=== PATIENT | female | born 1955 | race Two or more races ===

== ENCOUNTER → 2017-03-01 | Day surgery (SDC) | payer OTHER ==
[2017-03-01] VITALS (7 sets, daily range): BP systolic 126–148; BP diastolic 58–65; PULSE 76–78; RESP 14–21
[~2017-03-01] MED LIST: CIPROFLOXACIN 400MG/D5W 200 ML ONE; DIPHENHYDRAMINE 50 MG INJ IV PRN; EPHEDrine SULFATE 50 MG/5 ML SYG IV PRN; EPHEDrine SULFATE 50 MG/5 ML SYG ONE; FENTAnyl 50 MCG/ML VIAL IV PRN; FENTAnyl 50 MCG/ML VIAL ONE; INSULIN ASPART [NOVOLOG] 3 ML PEN SC ONE; LABETALOL HCL 20MG INJ IV PRN; LORAZEPAM 2 MG INJ IV PRN; MEPERIDINE 25 MG INJ IV PRN; METOCLOPRAMIDE 10 MG INJ ONE; MIDAZOLAM 1 MG/ML 2 ML INJ ONE; ONDANSETRON 4 MG INJ IV PRN; ONDANSETRON 4 MG INJ ONE; PROCHLORPERAZINE 10 MG INJ IV PRN; hydrALAzine 20 MG INJ IV PRN
--- NOTE | 2017-03-01 11:39 | OPPN ---
Date/Time of Note Date/Time of Note DATE: 03/01/17 TIME: 11:37 Proc Note GI Procedure Date 03/01/17 Pre-procedure Diagnosis Dysphagia Post-procedure Diagnosis Dysphagia Procedure Performed: Other (PEG) Surgeon see signature line Flame Brazing Machine Operator none Anesthesia Type: MAC Tourniquet Time none EBL none Transfusion required none Grafts/Implants none Tubes/Drains none Complication(s) none Disposition: other (2 [place]) Indications: other (Dysphagia) Operative\Procedure Findings PEG ANNIE CASTAÑEDA MD Mar 01, 2017 11:38
--- NOTE | 2017-03-01 13:00 | GILP ---
DATE OF PROCEDURE: 03/01/2017 PROCEDURE PERFORMED: Percutaneous endoscopic gastrostomy tube. INDICATIONS FOR PROCEDURE: The patient is 61-year-old female, with respiratory failure and dysphagia, is undergoing this procedure for placement of a G-tube for long-term enteral nutrition. DESCRIPTION OF PROCEDURE: The risks of the procedure, related and unrelated complications, anesthetic risks, alternatives were discussed. Informed consent was obtained. The patient was brought to the GI lab, sedated by the anesthesiologist. She was given antibiotic. After optimal sedation, scope was passed with much ease into the esophagus, advanced further down into stomach and duodenum. There was no evidence of obstruction. By transillumination and digital palpation technique, appropriate site was chosen on the anterior abdominal wall. The site was sterilized with chlorhexidine solution, 2 percent xylocaine instilled by safe method. Small incision was made. Through that incision trocar, stylet placed into stomach, stylet was removed through the hollow tip of the catheter. The blue collar string was passed into the stomach. It was snared. We trans-endoscopically passed the snare and the entire procedure was completed by modified Ponsky technique. The patient was rescoped, the position of the internal bumper confirmed, external bumper secured. Tolerated the procedure very well. IMPRESSION: Successful placement of G-tube done without any complication. PLAN: Resume feeding after 6 hours and all the medication after 3 hours. Dictated By: Bernabe Daniel MD /helder/jayme /Document#: [id number] CC: Tenzin Fischer DO;*[facility]*
== END | disposition home or self-care (01) ==
LOC: GIL 09:37
PROVIDERS: ATTEND Internal Medicine Gastroenterology
DX: R13.10 Dysphagia, unspecified (principal); J96.90 Respiratory failure, unspecified, unspecified whether with hypoxia or hypercapnia; I13.0 Hypertensive heart and chronic kidney disease with heart failure and stage 1 through stage 4 chronic kidney disease, or unspecified chronic kidney disease; I50.9 Heart failure, unspecified; E11.22 Type 2 diabetes mellitus with diabetic chronic kidney disease; N18.2 Chronic kidney disease, stage 2 (mild); Z79.4 Long term (current) use of insulin; E03.9 Hypothyroidism, unspecified; E66.01 Morbid (severe) obesity due to excess calories; G47.30 Sleep apnea, unspecified; Z88.6 Allergy status to analgesic agent; Z88.0 Allergy status to penicillin
CPT/HCPCS: 43246; 94002; J0744; J1815; J2250; J2405; J2765; J3010

== ENCOUNTER → 2017-03-13 | Day surgery (SDC) | payer OTHER ==
[2017-03-13] VITALS (12 sets, daily range): BP systolic 150–176; BP diastolic 74–86; PULSE 70–74; RESP 15–18
[~2017-03-13] VITALS: Ht 165.1 cm; Wt 120.2 kg
[~2017-03-13] MED LIST changes: +CEFAZOLIN 1 GM INJ ONE; -CIPROFLOXACIN 400MG/D5W 200 ML ONE; -DIPHENHYDRAMINE 50 MG INJ IV PRN; -EPHEDrine SULFATE 50 MG/5 ML SYG IV PRN; -EPHEDrine SULFATE 50 MG/5 ML SYG ONE; -FENTAnyl 50 MCG/ML VIAL IV PRN; -FENTAnyl 50 MCG/ML VIAL ONE; -INSULIN ASPART [NOVOLOG] 3 ML PEN SC ONE; -LABETALOL HCL 20MG INJ IV PRN; -LORAZEPAM 2 MG INJ IV PRN; -MEPERIDINE 25 MG INJ IV PRN; -METOCLOPRAMIDE 10 MG INJ ONE; -MIDAZOLAM 1 MG/ML 2 ML INJ ONE; -ONDANSETRON 4 MG INJ IV PRN; -ONDANSETRON 4 MG INJ ONE; -PROCHLORPERAZINE 10 MG INJ IV PRN; -hydrALAzine 20 MG INJ IV PRN
--- NOTE | 2017-03-13 13:23 | OPPN ---
Date/Time of Note Date/Time of Note DATE: 03/13/17 TIME: 13:22 Proc Note GI Procedure Date 03/13/17 Indication: treatment Pre-procedure Diagnosis dysphagia Post-procedure Diagnosis same Procedure Performed: Endoscopy, Other Surgeon see signature line Narcotics Investigator none Anesthesia Type: MAC Tourniquet Time none EBL none Transfusion required none Biopsy 1: none Grafts/Implants none Tubes/Drains none Complication(s) none Disposition: PACU Procedure Description PEG ANNIE CASTAÑEDA MD Mar 13, 2017 13:23
--- NOTE | 2017-03-13 13:24 | HPN ---
Date/Time of Note Date/Time of Note DATE: 03/13/17 TIME: 13:24 Interval H&P Admission Note Pt. seen H&P reviewed: No system changes ANNIE CASTAÑEDA MD Mar 13, 2017 13:24
--- NOTE | 2017-03-14 05:57 | GILP ---
DATE OF PROCEDURE: PROCEDURE PERFORMED: PEG. INDICATION: A 61-year-old female, status post a PEG, had a G-tube in subcutaneous tissue. She is u ndergoing an endoscopic procedure for the removal of the G-tube under endoscopic guidance and placem ent of new G-tube. INFORMED CONSENT: The risks of the procedure, related and unrelated complications, anesthetic risks , and alternatives discussed. Informed consent was obtained. DESCRIPTION OF PROCEDURE: The patient was brought to the OR room #1, sedated by Dr. Lr, and was given antibiotic. After optimum sedation, the scope was passed with much ease into the esophagus a nd advanced further down into the stomach, and the bumper was buried in the subcutaneous tissue. It cannot be moved in or out. So, at this point, decided to pass a guidewire through the stalk and ma naged to pass inside the stomach. The blue string was then pulled out with the scope through the bi opsy channel, and the whole procedure was completed by modified Ponsky technique. The old G-tube an d the bumper were removed by simple traction. The patient was rescoped. The position of the administration internship al bumper confirmed. The patient tolerated the procedure very well. IMPRESSION: Successful placement of gastrostomy tube (G-tube) done. PLAN: To keep the patient n.p.o., start the patient on PPI and antibiotic, Cipro, for Gram-negative coverage, and will resume feeding in a.m. NOTE: The staff should not be touching the bumper. Last time, they had put a 4x4 under the bumper, and that should be avoided. Dictated By: ANNIE HERNDON/MARGUERITE Conf#: [id number] DID#: [id number] CC: ROLANDA VALERA DO;*EndCC*
== END | disposition home or self-care (01) ==
LOC: SDS 11:53
PROVIDERS: ATTEND Internal Medicine Gastroenterology
DX: Z43.1 Encounter for attention to gastrostomy (principal); I10 Essential (primary) hypertension; E11.9 Type 2 diabetes mellitus without complications; J96.90 Respiratory failure, unspecified, unspecified whether with hypoxia or hypercapnia; J44.9 Chronic obstructive pulmonary disease, unspecified; E66.01 Morbid (severe) obesity due to excess calories
CPT/HCPCS: 43246; 94002; J0690

== ENCOUNTER 2017-04-13 06:11 | Day surgery (SDC) | payer OTHER ==
[2017-04-13] VITALS (8 sets, daily range): BP systolic 94–122; BP diastolic 35–55; PULSE 58–60; RESP 11–24
[~2017-04-13] VITALS: Ht 165.1 cm; Wt 125.0 kg
[2017-04-13] MEDS ORDERED: CIPRO 400 MG/200 ML D5W IVPB ONE (07:00)
[2017-04-13] MEDS ORDERED: LIDOCAINE 1% (MPF) 30 ML INJ ONE (07:49)
[2017-04-13] MEDS ORDERED: HEPARIN 1000 UNITS/ML 10 ML INJ ONE (07:49)
[2017-04-13] MEDS ORDERED: IOHEXOL 300MG/ML 30 ML BTL ONE (07:49)
--- NOTE | 2017-04-13 08:13 | HPN ---
Date/Time of Note Date/Time of Note DATE: 04/13/17 TIME: 08:13 Interval H&P Admission Note Pt. seen H&P reviewed: Systems changes noted below changes per notes in [place]endes per all consultants BHARATI VALERA MD Apr 13, 2017 08:13
[2017-04-13] MEDS ORDERED: MIDAZOLAM 1 MG/ML 2 ML INJ ONE (08:42)
[2017-04-13] MEDS ORDERED: PHENYLephrine (100 MCG/ML) 5ML SYG ONE (08:52)
[2017-04-13] MEDS ORDERED: FENTAnyl 50 MCG/ML VIAL ONE (08:52)
[2017-04-13] MEDS ORDERED: ROCURONIUM 50 MG INJ ONE (08:54)
[2017-04-13] MEDS ORDERED: METOCLOPRAMIDE 10 MG INJ ONE (09:29)
[2017-04-13] MEDS ORDERED: DEXAMETHASONE 4 MG/ML 1 ML INJ ONE (09:29)
[2017-04-13] MEDS ORDERED: ONDANSETRON 4 MG INJ ONE (09:29)
[2017-04-13] MEDS ORDERED: LABETALOL HCL 20MG INJ IV PRN (09:30)
[2017-04-13] MEDS ORDERED: ONDANSETRON 4 MG INJ IV PRN (09:30)
[2017-04-13] MEDS ORDERED: ALBUMIN HUMAN 5% 250 ML IV PRN (09:30)
[2017-04-13] MEDS ORDERED: EPHEDrine SULFATE 50 MG/5 ML SYG IV PRN (09:30)
[2017-04-13] MEDS ORDERED: FENTAnyl 50 MCG/ML VIAL IV PRN ×3 (09:30)
[2017-04-13] MEDS ORDERED: hydrALAzine 20 MG INJ IV PRN (09:30)
--- NOTE | 2017-04-13 10:42 | RADRPT ---
PROCEDURE: XR Chest. CLINICAL INDICATION: post perma cath insertion TECHNIQUE: Single portable view of the chest was obtained. COMPARISON: [facility] CHEST 04/13/2017 FINDINGS: A right internal jugular Perma-Cath tip overlies the right atrium without evidence of a pneumothorax . A tracheostomy tube overlies the upper trachea and terminates approximately 2 cm above the leeanna. Low lung volumes. The cardiomediastinal silhouette is stable in size and configuration. Diffuse tony ateral perihilar and lower lobe opacities are present with considerations including pulmonary edema and pneumonia. No evidence of a large pleural effusion. IMPRESSION: 1. Right internal jugular Perma-Cath insertion without pneumothorax. 2. Diffuse bilateral perihilar and lower lobe interstitial parenchymal opacities representing pulmo nary edema or pneumonia. 3. Tracheostomy tube. RPTAT: HRS[facility] Physician Mehnaz Date Time Electronically viewed and signed by Physician Mehnaz on 04/13/2017 10:42 RR/
--- NOTE | 2017-04-13 12:58 | RADRPT ---
PROCEDURE: XR Chest. CLINICAL INDICATION: Perma-Cath insertion. TECHNIQUE: Chest x-ray, single view. COMPARISON: 03/23/2017. FINDINGS: The cardiac silhouette is enlarged and unchanged in size. A right-sided hemodialysis catheter is corey tered at the SVC/right atrial junction. A tracheostomy tube is in place within the airway. Low lung volumes are observed. Patchy diffuse parenchymal opacification has decreased. There is no visible pn eumothorax. Degenerative changes of the spine are observed. IMPRESSION: Support lines and tubes, as above. No visible pneumothorax. Low lung volumes with decreased patchy diffuse parenchymal opacification. RPTAT: [facility]ST .Nithya Spring MD, Date Time Electronically viewed and signed by .Nithya Spring MD, on 04/13/2017 12:58 .T/
--- NOTE | 2017-04-13 22:39 | OPR ---
Date/Time of Note Date/Time of Note DATE: 04/13/17 TIME: 22:39 Operative Report Free Text/Dictation Preop diagnosis: Renal failure in need of hemodialysis Postop diagnosis: Same Procedure 1. Right internal jugular tunneled permacath dialysis catheter 2. Local anesthetic injection Surgeon: Dr. Bharati Valera Clinical Law Professor: None Anesthesia: MAC and local Anesthesiologist: Dr. Sherman Complication: None Specimen: None Implant/graft/strain: Permacath Indication: Patient with renal failure in need of dialysis. She has had a Chucho and now is need of a longer-term dialysis catheter. Risks, benefits, alternatives were fully explained to patient family as usual and customary in the agreed to proceed. Disposition: Patient tolerated procedure well taken back to recovery room in fair condition Procedure note: Patient was brought in and placed supine on the operating table. After induction of anesthesia arms were tucked and all pressure points were well- padded. Timeout was performed. Preoperative antibiotics administered. The previous Chucho was used on the IJ and the wire was placed and confirmed. Chucho was removed. Local anesthetic was injected at the surgical site. Cath was tunneled through the right chest into the right neck incision and introduced over the introducer with the Seldinger technique into the right SVC. The introducer was removed. Ports easily draw back nonpulsatile blood and easily flushed. Appropriate heparin was instilled in both ports. All counts were correct and the end the operation 2. Patient was taken back to recovery room in fair condition. Chest x-ray will be obtained. BHARATI VALERA MD Apr 13, 2017 22:39
== END 2017-04-13 10:43 ==
LOC: SDS 06:11
PROVIDERS: ATTEND Surgery
DX: Z45.2 Encounter for adjustment and management of vascular access device (principal); N19 Unspecified kidney failure; E11.9 Type 2 diabetes mellitus without complications; I10 Essential (primary) hypertension
CPT/HCPCS: 36558; 71010; 82962; 94002; C1752; J0744; J1100; J1644; J2250; J2370; J2405; J2765; J3010; Q9967